=== PATIENT | female | born 1945 | race Asian ===

== ENCOUNTER 2019-08-28 20:58 | Emergency (ER) | payer OTHER, MEDICARE ==
[~2019-08-28] VITALS: Ht 160 cm; Wt 66.2 kg
[2019-08-28 21:21] VITALS: Ht 160 cm; Wt 66.2 kg
[2019-08-29 00:58] VITALS: BP 120/69
== END 2019-08-29 00:58 | disposition home or self-care (01) ==
LOC: ED 20:58
DX: S80.861A Insect bite (nonvenomous), right lower leg, initial encounter (principal); I10 Essential (primary) hypertension; E78.00 Pure hypercholesterolemia, unspecified; Z88.0 Allergy status to penicillin; Z88.1 Allergy status to other antibiotic agents; W57.XXXA Bitten or stung by nonvenomous insect and other nonvenomous arthropods, initial encounter; Y93.89 Activity, other specified; Y92.89 Other specified places as the place of occurrence of the external cause; Y99.8 Other external cause status
CPT/HCPCS: 82962; J1885; Q0092